=== PATIENT | female | born 1995 | race Caucasian/White ===

== ENCOUNTER 2017-04-29 23:13 | Emergency (ER) | payer OTHER ==
[~2017-04-29] VITALS: Ht 160 cm; Wt 68.2 kg
[~2017-04-29 23:13] MED LIST: 00186-0372-20 IH; LO LOESTRIN FE1 TAB PO; PERCOCET 325 MG1 TA2 PO; VENTOLIN0.09 MG IH; ZOFRAN 4MG T4 MG/TAB PO
[2017-04-29 23:15] VITALS: BP 138/75; TEMP 97.9
[2017-04-29] MEDS ORDERED: DEPAKOTE ER 50500 MG PO (23:28)
[2017-04-29] MEDS ORDERED: LYZA0.35 MG PO (23:29)
[2017-04-29] MEDS ORDERED: IMITREX100 MG PO (23:30)
[2017-04-29] MEDS ORDERED: SARAFEM10 MG PO (23:31)
[2017-04-29] MEDS ORDERED: 00186-0372-20 IH (23:31)
[2017-04-29] MEDS ORDERED: WELLBUTRIN SR100 M1 PO (23:32)
[2017-04-29] MEDS ORDERED: AMBIEN 10MG10 MG PO (23:32)
[2017-04-29] MEDS ORDERED: AMBIEN 5MG TABLE5 MG PO (23:32)
[2017-04-30 00:56] VITALS: PULSE 72
== END 2017-04-30 00:56 | disposition home or self-care (01) ==
LOC: COL.ER 23:13
DX: G43.909 Migraine, unspecified, not intractable, without status migrainosus (principal); Z32.02 Encounter for pregnancy test, result negative
CPT/HCPCS: J1200; J1885; J2765; J7030

== ENCOUNTER → 2017-08-06 | Outpatient (CLI) | payer OTHER ==
[~2017-08-06] MED LIST changes: +AMBIEN 10MG10 MG PO; +AMBIEN 5MG TABLE5 MG PO; +DEPAKOTE ER 50500 MG PO; +IMITREX100 MG PO; +LYZA0.35 MG PO; +SARAFEM10 MG PO; +WELLBUTRIN SR100 M1 PO
== END ==
LOC: COL.RAD 14:00
DX: S80.11XA Contusion of right lower leg, initial encounter (principal); M25.461 Effusion, right knee

== ENCOUNTER 2017-08-30 15:25 | Emergency (ER) | payer OTHER ==
[~2017-08-30] VITALS: Ht 160 cm; Wt 71.8 kg
[2017-08-30 15:35] VITALS: BP 116/73; PULSE 85; TEMP 98.5
[2017-08-30] MEDS ORDERED: VIMPAT200 MG PO (15:57)
[2017-08-30] MEDS ORDERED: KLONOPIN 0.5MG0.5 MG PO (15:58)
== END 2017-08-30 16:15 | disposition home or self-care (01) ==
LOC: COL.ER 15:25
DX: S06.0X0A Concussion without loss of consciousness, initial encounter (principal); S00.83XA Contusion of other part of head, initial encounter; G40.409 Other generalized epilepsy and epileptic syndromes, not intractable, without status epilepticus; G43.909 Migraine, unspecified, not intractable, without status migrainosus; F32.9 Major depressive disorder, single episode, unspecified; W22.03XA Walked into furniture, initial encounter

== ENCOUNTER → 2017-09-26 | Outpatient (REF) ==
[~2017-09-26] MED LIST changes: +KLONOPIN 0.5MG0.5 MG PO; +VIMPAT200 MG PO
== END ==
LOC: WSPT 13:46
DX: Z02.1 Encounter for pre-employment examination (principal)

== ENCOUNTER 2021-08-22 17:34 | Outpatient (CLI) | payer OTHER ==
[~2021-08-22] VITALS: Ht 162.6 cm; Wt 90.0 kg
--- NOTE | 2021-08-22 17:40 | NUR ---
1740-G1 33.[address] Dejesus ambulatory to LR 3 with complaint of lower back pain that started at 3pm and has increased and is moving more toward front. Denies leaking of fluid or decreased movement. Declines having taken anything for the pain. Reports a history of one kidney stone in her lifetime and feels like this might be that. VSS, afrebrile. 175-Dr. Olvera updated on patient, order for labs, IVF, cath ua recieved. 1800-IV to left forearm, labs obtained and sent per orders. 1810-straight cath UA per sullyers. 1820-Reported off to Mark Shanks RN.
[2021-08-22 18:00] VITALS: BP 128/74; PULSE 112
[2021-08-22 18:15] LABS: COLLECTION METHOD CATHETER
[2021-08-22 18:20] VITALS: BP 125/69; PULSE 97; TEMP 98
--- NOTE | 2021-08-22 18:20 | NUR ---
1819- Report rec'd from AMOR Welch/ transfer of care. LR infusing at this time. IV patent and clear w/o any complaints. Pt has ice pack on her back 1834- Tracing maternal HR. Pt sitting straight up in bed. SPO2 probe applied. +FM. 1844- Dr. Olvera called and notified of lab results. Per provider lab results show no sign of UTI or kidney stone at this time. Okay to bolus the remainder of fluids in and orders rec'd to DC pt home. 1899- Pt up to BR. 1914- VSS. Afebrile. Pt c/o back pain 11/24. 1919- DC instructions d/w pt and spouse. Pt verbalizes understanding. Instructions reviewed and signed. IV dc'd and intact. Drsg applied. 1926- Pt ambulated off unit, accompanied by spouse. DC home.
[2021-08-22 18:22] LABS: BASO % 0.2 % (0.0-2.0); EOS # 0.1 K/mm3 (0.0-0.7); EOS % 0.6 % (0.0-4.0); GRAN # 6.8 K/mm3 (1.4-6.5); GRAN % 75.5 % (42.2-75.2); HEMATOCRIT 33.9 % (37.0-47.0); HEMOGLOBIN 11.7 g/dl (12.5-16.0); LYMPH # 1.4 K/mm3 (1.2-3.4); LYMPH % 15.7 % (20.0-51.0); MEAN CELL VOLUME 91 fl (80.0-100.0); MEAN CORPUSCULAR HEMOGLOBIN 31 pg (27-31); MEAN CORPUSCULAR HGB CONC 35 g/dl (33.0-37.0); MEAN PLATELET VOLUME 9.7 fl (7.4-10.4); MONO # 0.7 K/mm3 (0.1-0.6); MONO % 7.4 % (1.7-9.3); PLATELET COUNT 275 K/mm3 (130-400); RED BLOOD COUNT 3.73 M/mm3 (4.10-5.30); REDCELL DISTRIBUTION WIDTH-CV 13.7 % (11.5-14.5)
[2021-08-22 18:25] LABS: PH 7 (5-8); SQUAMOUS EPITHELIAL None Seen /hpf (0-10); URINE APPEARANCE Clear (CLEAR/HAZY); URINE BACTERIA None Seen /hpf (NONE SEEN); URINE BILIRUBIN Negative (NEGATIVE); URINE BLOOD 1+ (NEGATIVE); URINE COLOR Straw (YELLOW); URINE GLUCOSE Negative (NEGATIVE); URINE KETONE Negative (NEGATIVE); URINE LEUKOCYTE ESTERASE Negative (NEGATIVE); URINE NITRATE Negative (NEGATIVE); URINE PROTEIN(semi-quant) Negative (NEGATIVE); URINE RBC 0-2 /hpf (0-2); URINE UROBILINOGEN Negative (NEGATIVE)
[2021-08-22 18:37] LABS: ALBUMIN 3.1 gm/dL (3.5-5.0); BILIRUBIN,TOTAL 0.3 mg/dL (0.2-1.2); CALCIUM 9.2 mg/dL (8.4-10.2); CREATININE, serum 0.63 mg/dL (0.57-1.11); POTASSIUM 3.9 mmol/L (3.5-4.5); TOTAL PROTEIN 6.8 gm/dL (6.2-8.1)
[2021-08-22 19:00] VITALS: BP 137/69; PULSE 99
[2021-08-22 19:15] VITALS: BP 111/56; PULSE 91; TEMP 97.8
== END 2021-08-22 19:27 | disposition home or self-care (01) ==
LOC: LDRO 17:34 → LDR 18:03 → LDRO 19:27
PROVIDERS: Obstetrics & Gynecology
DX: O26.893 Other specified pregnancy related conditions, third trimester (principal); M54.9 Dorsalgia, unspecified; Z3A.33 33 weeks gestation of pregnancy
CPT/HCPCS: J7120

== ENCOUNTER 2021-10-02 07:45 | Inpatient (IN) | payer OTHER ==
[~2021-10-02] VITALS: Ht 162.6 cm; Wt 90.9 kg
--- NOTE | 2021-10-04 19:18 | NUR ---
1918- 25 yo , 39.6 wga pt arrrives to OB unit for induction of labor. Pt ambulatory and accompanied by spouse, Randy. Escorted to room LDR5 and instructions given. Pt reports +FM, +CTX,-VB, -LOF. 1925- EFM and toco applied. VSS, afebrile. Pt denies any pain at this time. 1949- D/W pt and spouse about plan of care for the night and Cytotec induction. Consents reviewed and signed w/ pt 2006- #18g Lt wrist IV started, x1 attempt, successful, labs drawn w/ IV start. Pt tolerated well w/o any difficulties. IV started by Mark Shanks RN. 2019- SVE -3, intact and vertex. Cytotec placed.
[2021-10-04 19:33] VITALS: TEMP 98.2
[2021-10-04 20:00] VITALS: BP 120/66; PULSE 105; TEMP 98.2
[2021-10-04 20:22] LABS: BASO % 0.1 % (0.0-2.0); EOS % 0.2 % (0.0-4.0); GRAN # 5.9 K/mm3 (1.4-6.5); GRAN % 73.2 % (42.2-75.2); HEMOGLOBIN 12.1 g/dl (12.5-16.0); LYMPH # 1.6 K/mm3 (1.2-3.4); LYMPH % 19.4 % (20.0-51.0); MEAN CELL VOLUME 90 fl (80.0-100.0); MEAN CORPUSCULAR HEMOGLOBIN 31 pg (27-31); MEAN CORPUSCULAR HGB CONC 34 g/dl (33.0-37.0); MEAN PLATELET VOLUME 10.4 fl (7.4-10.4); MONO # 0.5 K/mm3 (0.1-0.6); MONO % 6.7 % (1.7-9.3); PLATELET COUNT 233 K/mm3 (130-400); RED BLOOD COUNT 3.95 M/mm3 (4.10-5.30); REDCELL DISTRIBUTION WIDTH-CV 14.4 % (11.5-14.5)
[2021-10-04 20:29] LABS: HEMATOCRIT 35.5 % (37.0-47.0)
[2021-10-04] MEDS ORDERED: LAMICTAL150 MG PO (20:51)
[2021-10-04] MEDS ORDERED: PRILOSEC 20MG20 MG PO (20:52)
[2021-10-04] MEDS ORDERED: MAG-OX 400400 MG/TAB PO (20:52)
[2021-10-04] MEDS ORDERED: UNISOM25 MG PO (20:53)
[2021-10-04] MEDS ORDERED: FOLIC ACID 11 MG/TA1 PO (20:53)
[2021-10-04] MEDS ORDERED: PRENATAL TABLET PO (20:53)
[2021-10-04 21:00] VITALS: BP 129/66; PULSE 98
[2021-10-04 21:30] VITALS: BP 128/69; PULSE 95
--- NOTE | 2021-10-04 23:30 | NUR ---
FHR baseline indeterminate r/t maternal positioning on birthing ball and stretching. EFM adjusted multiple times.
[2021-10-05] VITALS (63 sets, daily range): BP systolic 95–168; BP diastolic 53–95; PULSE 75–153; TEMP 97.4–101.3
--- NOTE | 2021-10-05 06:30 | NUR ---
0860-1064: PT REQUESTING TO USE RESTROOM TO GET FRESHENED UP AND CLEANED UP FOR HER DAY. DENIES NEED FOR ASSISTANCE. REQUESTING PRIVACY. THIS NURSE REMAINS OUTSIDE BATHROOM DOOR, MODERATE CONTRACTIONS PALPATED INTERMITTENTLY Q1-2MIN APART. PT ABLE TO TALK THROUGH CONTRACTIONS BUT DOES REPORT INCREASE IN PAIN AND DURATION. UNABLE TO TRACE EFM/TOCO WHILE IN RESTROOM DUE TO CORD RESTRAINTS. CATEGORY 1 STRIP NOTED UPON RETURN TO BED ON EFM TRACING. PT UP ON BIRTHING BALL THIS NURSE EXITS ROOM. STABLE CONDITION.
--- NOTE | 2021-10-05 07:25 | NUR ---
AT BEDSIDE. REVIEWS EFM/TOCO. SVE /-2. DISCUSSES POC WITH PT. 0725: AROM PER , CLEAR FLUID, ODORLESS. PT TOLERATED PROCEDURE WELL.
--- NOTE | 2021-10-05 08:18 | NUR ---
PT TO EDGE OF BED FOR EPIDURAL PLACEMENT, SITTING POSITION. CATEGORY 1 EFM TRACING PRIOR TO SITTING UP, CONTRACTIONS Q1-2 MINUTES APART, FIRM WITH PALPATION. BETH CHISHOLM CRNA EDUCATES PT ON EPIDURAL PLACEMENT AND RISKS, PT AGREEABLE TO POC. DIFFICULTY TRACING EFM/TOCO THROUGHOUT THIS ENCOUNTER DUE TO MATERNAL POSITIONING. 0818: TEST DOSE PER BETH CHISHOLM CRNA. PT TOLERATED PROCEDURE WELL. VITAL SIGNS STABLE AT THIS TIME.
--- NOTE | 2021-10-05 11:30 | NUR ---
AT PT'S BEDSIDE. SVE 5-/-1 PER . NO NEW ORDERS AT THIS TIME. CONTINUE WITH POC.
--- NOTE | 2021-10-05 15:30 | NUR ---
AT BEDSIDE, SVE 8-/-1. CAPUT NOTED PER . CATEGORY 1 EFM TRACING. CONTRACTIONS FIRM WITH PALPATION, Q2-2.5MIN. CONTINUE WITH POC. NO NEW ORDERS AT THIS TIME.
--- NOTE | 2021-10-05 16:41 | NUR ---
0265-8556: AT BEDSIDE. SVE WITH AND WITHOUT CONTRACTION PER . 9.5/100/-1, UNABLE TO REDUCE CERVIX WITH CONTRACTION. EFM TRACING TACHYCARDIA WITH CERVICAL EXAM, REMAINS AT BEDSIDE FOR EVALUATION. PT PLACED IN LEFT LATERAL POSITION WITH PEANUT BALL, LATE DECELERATION FOLLOWING TACHYCARDIC EPISODE, HEART RATE THEN BEGINS RETURNING TO BASELINE FOLLOWING CONTRACTION. MODERATE VARIBILITY THROUGHOUT THIS EPISODE. VERBAL ORDERS TO RECHECK CERVIX AT 1710 AND UPDATE PHYSICIAN.
--- NOTE | 2021-10-05 18:15 | NUR ---
1814- THIS RN TO BACK LABOR DESK. DR. KAHN GETTING JACKET TO LEAVE UNIT. ADVISED DR. KAHN THAT THIS RN WAS TAKING OVER CARE OF HER PATIENT. SHE VERBALIZED UNDERSTANDING AND STATED SHE WAS GUESSING MAYBE 1.5 HOURS MORE OF PUSHING. I VERBALIZED UNDERSTANDING AND WENT INTO LABOR ROOM TO GET BEDSIDE REPORT FROM Terence MONSIVAIS RN. 1824- THIS RN STARTED PUSHING WITH PATIENT. THIS RN STAYS IN THE ROOM AND CONTINUES PUSHING WITH PATIENT WITH EVERY CONTRACTION. 1841- DR. KAHN CALLED THIS RN ABOUT STRIP. FHR HAS BEEN TACHYCARDIC SINCE BEFORE COMING ON THE SHIFT. ADVISED PATEINT TEMPERATURE IS 98.9 ORALLY AND 101.3 AXILLARY, AFTER TAKING IT PER PROVIDERS REQUEST. PROVIDER GAVE ORDERS TO GIVE AMP AND GENT PER CHORIO PROTOCOL AND 1G OF TYLENOL NOW. THIS RN VERBALIZED UNDERSTANDING. 1843- THIS RN CALLED CHARGE NURSE TO HELP GET AMP AND GENT SET UP SINCE PROVIDER REQUEST I CONTINUE TO PUSH WITH PATIENT. 0- 1G OF TYLENOL GIVEN ORALLY. 1899- 2G AMPICILLIN HUNG IVPB 1916- GENTAMICIN JOSE MARIA IVPB 1936- DR. KAHN AT BEDSIDE FOR PUSHING EVALUATION. PROVIDER PUSHED WITH PATIENT FOR A COUPLE CONTRACTIONS AND VERBALIZED SHE WAS PUSHING VERY WELL. 1939- THIS RN CONTINUES PUSHING WITH PATIENT AT THIS POINT. DR. KAHN ON UNIT AND AT LABOR DESK. 1952- DR. KAHN BACK AT BEDSIDE. PUSHES WITH PATIENT FOR 3 CONTRACTIONS AND STATES TO BREAK DOWN THE BED AND CALL NURSERY AND CHARGE TO PREP FOR POSSIBLE SHOULDER PRECAUTIONS. 1958- THIS RN CALLED NURSERY AND CHARGE FOR DELIVERY. BETH OUTSIDE ROOM FOR SHOULD PRECAUTIONS ALREADY. 2003- OF VIABLE MALE . INFANT PLACED TO MOTHER ABDOMEN WHERE NURSERY NURSE ASSUMES CARE AT THIS TIME. PITOCIN TURNED OFF AT THIS TIME PER PROTOCOL. DELAYED CORD CLAMPING DONE DURING THIS TIME. 2008- OF PLACENTA. FUNDUS MASSAGED TO FIRM BY PROVIDER. PITOCIN STARTED PER PROTOCOL AT 333ML/HR. PROVIDER GAVE VERBAL ORDERS FOR BLOOD GASES AND TO SEND PLACENTA TO PATH FOR TERMINAL MEC AND CHORIO. THIS NURSE VERBALIZED UNDERSTANDING. PROVIDER ALSO GAVE VERBAL ORDERS TO CHARGE NURSE TO GET SOME METHERGINE IMX1 NOW. 2ND DEGREE TEAR NOTED BY PROVIDER AND REPAIRED DURING THIS TIME. EBL NOTED TO BE 400 BY PROVIDER. 2013- METHERGINE IM GIVEN. 2014- VITALS STABLE, FUNDUS FIRM. PATIENT AND ROOM CLEANED UP AND PUT BACK TOGETHER. NEW CHUX, PERIPAD AND ICEPACK TO PERINEUM. RECOVERY STARTED.
--- NOTE | 2021-10-05 18:23 | NUR ---
NURSE TO NURSE BEDSIDE REPORT TO AMOR MOREJON AT THIS TIME.
[2021-10-06 04:30] VITALS: BP 130/72; PULSE 86; TEMP 97.6
[2021-10-06 07:30] VITALS: BP 121/69; PULSE 88; TEMP 97.3
[2021-10-06] MEDS ORDERED: MOTRIN 800800 MG/TAB PO (08:40)
--- NOTE | 2021-10-06 09:05 | NUR ---
Initial visit; Parents thanked Military Administrative Technician for offering congratulations and God's blessings for the of their son. Military Administrative Technician thanked family for choosing [facility].
[2021-10-06 12:07] VITALS: BP 115/53; PULSE 91; TEMP 97.7
[2021-10-06 16:50] VITALS: BP 109/65; PULSE 82; TEMP 97.4
[2021-10-06 23:00] VITALS: BP 109/68; PULSE 84; TEMP 97.9
[2021-10-07 07:30] VITALS: BP 112/59; PULSE 78; TEMP 97.6
[2021-10-07 16:18] VITALS: BP 124/70; PULSE 90; TEMP 97.7
== END 2021-10-07 22:50 | disposition home or self-care (01) | DRG 805 ==
LOC: LDR 10-04 07:33 → OB 10-04 19:14 → LDR 10-04 19:14 → OB 10-05 22:45
PROVIDERS: ADMIT Obstetrics & Gynecology
PROC: 10E0XZZ Delivery of Products of Conception, External Approach (ICD-10-PCS; principal; 2021-10-05)
PROC: 0KQM0ZZ Repair Perineum Muscle, Open Approach (ICD-10-PCS; 2021-10-05)
PROC: 3E033VJ Introduction of Other Hormone into Peripheral Vein, Percutaneous Approach (ICD-10-PCS; 2021-10-05)
PROC: 3E0P7VZ Introduction of Hormone into Female Reproductive, Via Natural or Artificial Opening (ICD-10-PCS; 2021-10-05)
PROC: 10907ZC Drainage of Amniotic Fluid, Therapeutic from Products of Conception, Via Natural or Artificial Opening (ICD-10-PCS; 2021-10-05)
DX: O99.354 Diseases of the nervous system complicating childbirth (principal); O41.1230 Chorioamnionitis, third trimester, not applicable or unspecified; Z37.0 Single live birth; G40.909 Epilepsy, unspecified, not intractable, without status epilepticus; O99.52 Diseases of the respiratory system complicating childbirth; J45.909 Unspecified asthma, uncomplicated; O43.123 Velamentous insertion of umbilical cord, third trimester; O99.344 Other mental disorders complicating childbirth; F32.A Depression, unspecified; O76 Abnormality in fetal heart rate and rhythm complicating labor and delivery; O72.1 Other immediate postpartum hemorrhage; O70.1 Second degree perineal laceration during delivery; Z3A.39 39 weeks gestation of pregnancy
CPT/HCPCS: J0290; J1580; J2210; J2405; J2590; J7120

== ENCOUNTER → 2021-12-27 | Outpatient (CLI) | payer OTHER ==
[~2021-12-27] MED LIST changes: +FOLIC ACID 11 MG/TA1 PO; +LAMICTAL150 MG PO; +MAG-OX 400400 MG/TAB PO; +MOTRIN 800800 MG/TAB PO; +PRENATAL TABLET PO; +PRILOSEC 20MG20 MG PO; +UNISOM25 MG PO
--- NOTE | 2021-12-27 15:44 | NUR ---
Pt, Alberto Brink, presents with four month old baby boy, Randy Brock" [place] for a evaluation due to continued nipple pain and difficulty keeping Will latched well for a full feeding even at this age. Bryant was born on [birth year] and weighed 8# 8.5oz (3870 gms). Today he weighs 14# 10.4oz (6645 gms). Pt states she breastfeeds ~50% of his feedings and he takes 2-3 bottles, each with 4oz EBM. She pumps 4-10 oz 5-6 times daily. Upon exam, this LC notes that Bryant has a high anterior palate that may cause low milk transfer as the nipple will point up into the elevated location rather than extend along the length of of the hard palate and get complete compression with nursing. Also of note is that he has an area of the center of his tongue that tends to dip or create a "bowl" when he is lifting his tongue. He can lateralize to the lower gum but at this exam did not lift and lateralize his tongue. This lack of movement may be associated with a posterior tongue tie. LC can palpate a subligual frenulum but cannot visualize it when he lifts his tongue. He also has a upper lip frenulum that does extend the length of his upper gum. Bryant is able to extend his tongue very well, but when he is at the breast he seems to let the nipple slip out of his mouth, requiring him to relatch throughout the feeding. Pt still has to hold both the baby and the breast for optimal latching. After Bryant had a weight gain of 2.4oz (70 gms), which is just over half of what a typical bottle feeding is, and what would be expected for a baby his age and size. Also, the length of time feeding for a baby that is latching well and efficient was much longer than anticipated. 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 Recommendation: Consider evaluation by a dental provider experienced in management of oral tethers. POC: Continue breast and bottle feeding as neede to maintain Will's growth and pt's milk supply. F/U: As schedule with medical providers and this LC as needed. Questions invited and answered.
== END ==
LOC: LAC 14:59
DX: Z39.1 Encounter for care and examination of lactating mother (principal)